=== PATIENT | male | born 1950 | race Caucasian/White ===

== ENCOUNTER 2018-03-05 12:17 | Inpatient (IN) | payer OTHER, MEDICARE ==
[~2018-03-05] VITALS: Ht 175.3 cm; Wt 125.6 kg
[2018-03-05 13:30] LABS: BASOPHIL (%) 0.3 % (0-1); BASOPHIL COUNT 0.1 K/uL (0-0.1); EOSINOPHIL (%) 0 % (0-5); HEMATOCRIT 49.5 % (38.0-50.0); HEMOGLOBIN 17.3 G/DL (12.5-16.6); IMMATURE GRANULOCYTE (%) 0.7 % (0.0-0.7); LYMPHOCYTE (%) 9.6 % (15-42); LYMPHOCYTE COUNT 2.1 K/uL (1.0-2.8); MCHC 34.9 G/DL (30.0-36.0); MCV 91.5 FL (86-99); MONOCYTE (%) 7.4 % (3-12); MONOCYTE COUNT 1.6 K/uL (0-0.8); NEUTROPHIL COUNT 18.1 K/uL (1.8-6.4); PLATELET COUNT 381 K/uL (156-360); RBC DIS.WIDTH-CV 14.1 % (11.8-14.6); RBC DIS.WIDTH-SD 47.4 % (39-53); RED BLOOD COUNT 5.41 M/uL (4.00-5.50); WHITE BLOOD COUNT 22.1 K/uL (4.1-10.2)
[2018-03-05 14:00] LABS: ALBUMIN 4.4 g/dL (3.2-4.8); CHLORIDE 98 mEq/L (99-109); POTASSIUM 4.4 mEq/L (3.7-5.4); SODIUM 134 mEq/L (136-147)
[2018-03-05 14:02] LABS: GLUCOSE 170 mg/dL (70-99); TOTAL PROTEIN 8.2 g/dL (6.4-8.3)
[2018-03-05 14:04] LABS: TOTAL BILIRUBIN 1.2 mg/dL (0.0-1.0)
[2018-03-05 14:06] LABS: ALKALINE PHOSPHATASE 85 IU/L (3-129); CREATININE 1.2 mg/dL (0.6-1.3); GFR ESTIMATE (CALCULATED) > 59 mL/min/ (58.99-99999)
[2018-03-05 14:07] LABS: UREA NITROGEN (BUN) 13 mg/dL (9-23)
[2018-03-05 14:08] LABS: AST (GOT) 20 IU/L (2-34)
[2018-03-05 14:09] LABS: ALT (GPT) 21 IU/L (3-49)
[2018-03-05 14:12] LABS: TROP-I INTERPRETATION NEGATIVE; TROPONIN-I < 0.01 ng/mL (0.0-0.30)
[2018-03-05 16:31] LABS: MAGNESIUM 2.3 mg/dL (1.3-2.7)
[2018-03-05] MEDS ORDERED: ERGOCALCIF50000 UNIT PO (17:41)
[2018-03-05 17:42] LABS: HDL CHOLESTEROL 47 MG/DL (Desirable>=40); LDL CHOLESTEROL 88 mg/dL (Desirable<100); NON-HDL CHOLESTEROL 103 mg/dL (Desirable<160); TOTAL CHOLESTEROL 150 mg/dL (Desirable<200); TRIGLYCERIDES 74 MG/DL (Normal: <150)
[2018-03-05] MEDS ORDERED: ASPIRIN325 MG PO (17:43)
[2018-03-05 18:03] LABS: APPEARANCE CLEAR ((CLEAR)); BILIRUBIN NEGATIVE; BLOOD SMALL; COLOR YELLOW ((YELLOW)); GLUCOSE (STRIP) NEGATIVE; KETONES 5; LEUKOCYTES NEGATIVE; NITRITE NEGATIVE; PROTEIN (STRIP) 30; SPECIFIC GRAVITY 1.035 (1.000-1.030)
[2018-03-05 18:05] LABS: BACTERIA RARE /HPF; EPITHELIAL CELLS RARE /HPF; MUCUS TRACE /LPF; RED BLOOD CELLS 20-30 /HPF (0-5); UCUL ADDED? NO; WHITE BLOOD CELLS 0-5 /HPF (0-5)
[2018-03-05 18:14] VITALS: BP 141/86
[2018-03-05 18:16] LABS: THYROTROPIN (TSH) 0.78 MIU/L (0.4-5.5)
[2018-03-05 19:57] VITALS: BP 142/90
[2018-03-05 21:57] LABS: TROP-I INTERPRETATION NEGATIVE; TROPONIN-I 0.01 ng/mL (0.0-0.30)
[2018-03-06 03:11] VITALS: BP 99/70
[2018-03-06 05:22] LABS: HEMATOCRIT 40.6 % (38.0-50.0); HEMOGLOBIN 13.4 G/DL (12.5-16.6); MCH 31.2 PG (29.0-34.0); MCV 94.4 FL (86-99); PLATELET COUNT 252 K/uL (156-360); RBC DIS.WIDTH-CV 13.7 % (11.8-14.6); RBC DIS.WIDTH-SD 48.1 % (39-53); WHITE BLOOD COUNT 20.2 K/uL (4.1-10.2)
[2018-03-06 05:45] LABS: TROP-I INTERPRETATION NEGATIVE; TROPONIN-I < 0.01 ng/mL (0.0-0.30)
[2018-03-06 06:08] LABS: ALBUMIN 3.4 G/DL (3.2-4.8); ALKALINE PHOSPHATASE 61 IU/L (3-129); ALT (GPT) 16 IU/L (3-49); AST (GOT) 16 IU/L (2-34); CHLORIDE 101 MEQ/L (99-109); CREATININE 0.9 MG/DL (0.6-1.3); GFR ESTIMATE (CALCULATED) > 59 mL/min/ (58.99-99999); GLUCOSE 194 mg/dL (70-99); POTASSIUM 3.9 MEQ/L (3.7-5.4); SODIUM 133 MEQ/L (136-147); TOTAL BILIRUBIN 1.1 MG/DL (0.0-1.0); TOTAL PROTEIN 5.8 G/DL (6.4-8.3); UREA NITROGEN (BUN) 14 mg/dL (9-23)
[2018-03-06 07:04] VITALS: BP 110/73
[2018-03-06 08:48] LABS: THYROTROPIN (TSH) 0.79 MIU/L (0.4-5.5)
[2018-03-06 11:21] VITALS: BP 108/74
[2018-03-06 15:14] VITALS: BP 118/65
[2018-03-06 19:26] VITALS: BP 105/68
[2018-03-07 00:21] VITALS: BP 115/80
[2018-03-07 04:10] VITALS: BP 103/62
[2018-03-07 05:39] LABS: HEMATOCRIT 35.7 % (38.0-50.0); MCH 31.6 PG (29.0-34.0); MCHC 33.6 G/DL (30.0-36.0); MCV 93.9 FL (86-99); PLATELET COUNT 258 K/uL (156-360); RBC DIS.WIDTH-CV 13.7 % (11.8-14.6); RBC DIS.WIDTH-SD 47.4 % (39-53); WHITE BLOOD COUNT 11.2 K/uL (4.1-10.2)
[2018-03-07 05:53] LABS: CHLORIDE 102 MEQ/L (99-109); CREATININE 0.7 MG/DL (0.6-1.3); GFR ESTIMATE (CALCULATED) > 59 mL/min/ (58.99-99999); GLUCOSE 169 mg/dL (70-99); POTASSIUM 3.9 MEQ/L (3.7-5.4); SODIUM 136 MEQ/L (136-147); UREA NITROGEN (BUN) 13 mg/dL (9-23)
[2018-03-07 07:11] VITALS: BP 98/64
[2018-03-07] MEDS ORDERED: LEVAQUIN750 MG PO (10:32)
[2018-03-07] MEDS ORDERED: ELIQUIS5 MG PO (10:33)
[2018-03-07] MEDS ORDERED: [UNRECOGNIZED DRUG - OTHER] PO (10:33)
[2018-03-07] MEDS ORDERED: METFORMIN HCL500 MG PO (10:36)
[2018-03-07] MEDS ORDERED: XARELTO20 MG PO (13:22)
== END 2018-03-07 14:16 | disposition home health service (06) | DRG 728 ==
LOC: EME 12:17 → EDOF 15:59 → 4EAST 15:59 → ENRESERV 16:07 → EDOF 16:14 → ENRESERV 16:22 → 4EAST 17:58
PROVIDERS: Emergency Medicine; Internal Medicine
PROC: 0V950ZZ Drainage of Scrotum, Open Approach (ICD-10-PCS; principal; 2018-03-05)
DX: N49.2 Inflammatory disorders of scrotum (principal); I48.92 Unspecified atrial flutter; E11.9 Type 2 diabetes mellitus without complications; F17.210 Nicotine dependence, cigarettes, uncomplicated; E66.01 Morbid (severe) obesity due to excess calories; Z68.41 Body mass index [BMI] 40.0-44.9, adult; L40.8 Other psoriasis; K76.0 Fatty (change of) liver, not elsewhere classified; Z91.14 Patient's other noncompliance with medication regimen
CPT/HCPCS: 71045; 74177; 76870; 80048; 80053; 80061; 80202; 81003; 83036; 83605; 83735; 84443; 84484; 85025; 85027; 87040; 87070; 87075; 87076; 87185; 87205; 93005; 93306; 99281; 99285; J2543; J3370; J7030; J7050